=== PATIENT | female | born 1980 ===

== ENCOUNTER 2019-07-21 00:07 | Inpatient (IN) ==
[2019-07-21] MEDS ORDERED: GLUCAGON 1 MG VIAL IM PRN ×3 (02:28→09:47)
[2019-07-21] MEDS ORDERED: DEXTROSE 10% 250 ML BAG IV PRN (02:28)
[2019-07-21] MEDS ORDERED: ACETAMINOPHEN 325 MG TABLET PO PRN (02:44)
[2019-07-21] MEDS ORDERED: DEXTROSE 50% 25 GM/50 ML SYRINGE IV PRN (02:44)
[2019-07-21] MEDS: HYDROXYCHLOROQUINE 200 MG TABLET PO SCH ×2 (08:08→20:34)
[2019-07-21] MEDS: ZINC SULFATE 220 MG CAPSULE PO SCH (08:08)
[2019-07-21] MEDS: ENOXAPARIN 40 MG/0.4 ML SYRINGE SUBCUT SCH (08:08)
[2019-07-21] MEDS: INSULIN REGULAR 100 UNIT/ML SUBCUT SCH ×4 (08:31→20:17)
[2019-07-21] MEDS ORDERED: PANTOPRAZOLE 40 MG TABLET PO SCH (09:00)
[2019-07-21] MEDS ORDERED: DEXTROSE 50% 25 GM/50 ML VIAL IV PRN (09:47)
[2019-07-21 15:38] LABS: Basophils % 0.2 % (0.0-0.8); Hematocrit 41.2 VOL% (35.7-47.0); Hemoglobin 13.5 GM/DL (12.0-16.0); Immature Granulocytes % 0.6 %; Immature Granulocytes Absolute 0.03 #; Lymphocytes # 1.1 10*3/uL (1.4-4.0); Lymphocytes % 22.5 % (21.3-54.2); Mean Corpuscular HGB Conc 32.8 GM/DL (32-36); Mean Platelet Volume 10.7 FL (9.6-12.0); Monocytes % 4.8 % (1.7-12.7); Neutrophils % 71.9 % (38.7-73.9); Platelet Count 247 T/CUMM (130-400); Red Blood Count 4.79 MC/CUMM (3.8-5.5); Red Cell Distribution Width 14.1 % (9.3-17.3)
[2019-07-21 15:59] LABS: Bilirubin,Total 0.8 MG/DL (0.2-1.0); Calcium 8.1 MG/DL (8.5-10.1); Osmolality,Calculated 271.5 MOS/KG (273-304); Total Protein 7.3 G/DL (6.4-8.3)
[2019-07-21 16:00] LABS: Ferritin 256.7 ng/ml (8-252)
[2019-07-21 16:25] LABS: Atypical Lymphocytes Few; Band Neutrophils 1 % (0-10); Lymphocytes 16 % (20-55); Platelet Estimate Adequate; Reactive Lymphocytes Few; Segmented Neutrophils 78 % (50-85); Total Cells Counted 100
[2019-07-22 06:36] LABS: Basophils % 0.2 % (0.0-0.8); Eosinophils % 0.6 % (0.00-10.9); Hematocrit 39.4 VOL% (35.7-47.0); Hemoglobin 12.9 GM/DL (12.0-16.0); Immature Granulocytes % 0.4 %; Immature Granulocytes Absolute 0.02 #; Lymphocytes # 1.5 10*3/uL (1.4-4.0); Lymphocytes % 29.1 % (21.3-54.2); Mean Corpuscular HGB Conc 32.7 GM/DL (32-36); Mean Corpuscular Volume 86.4 FL (87-102); Neutrophils % 63.7 % (38.7-73.9); Platelet Count 246 T/CUMM (130-400); Red Blood Count 4.56 MC/CUMM (3.8-5.5); Red Cell Distribution Width 13.9 % (9.3-17.3); White Blood Count 5.2 T/CUMM (4-12)
[2019-07-22 07:04] LABS: Calcium 8.3 MG/DL (8.5-10.1); Ferritin 209.4 ng/ml (8-252); Osmolality,Calculated 269.4 MOS/KG (273-304)
[2019-07-22 07:55] LABS: Hypochromasia 1+; Lymphocytes 29 % (20-55); Platelet Estimate Adequate; Segmented Neutrophils 65 % (50-85); Total Cells Counted 100
[2019-07-22] MEDS: ALBUTEROL INHALER 18 GM INH SCH ×3 (08:26→20:55)
[2019-07-22] MEDS: ENOXAPARIN 40 MG/0.4 ML SYRINGE SUBCUT SCH (08:26)
[2019-07-22] MEDS: HYDROXYCHLOROQUINE 200 MG TABLET PO SCH ×2 (08:26→20:55)
[2019-07-22] MEDS: INSULIN REGULAR 100 UNIT/ML SUBCUT SCH ×4 (08:40→20:55)
[2019-07-22] MEDS: INSULIN GLARGINE 100 UNIT/ML SUBCUT SCH (15:03)
[2019-07-22] MEDS: hydroCHLOROthiazide 25 MG TABLET PO SCH (15:03)
[2019-07-23] MEDS: ALBUTEROL INHALER 18 GM INH SCH ×4 (01:56→20:23)
[2019-07-23 07:07] LABS: Basophils % 0.2 % (0.0-0.8); Eosinophils # 0.1 10*3/uL (0.0-0.87); Hematocrit 35.5 VOL% (35.7-47.0); Hemoglobin 12.1 GM/DL (12.0-16.0); Immature Granulocytes % 0.5 %; Immature Granulocytes Absolute 0.03 #; Lymphocytes # 1.4 10*3/uL (1.4-4.0); Lymphocytes % 23.1 % (21.3-54.2); Mean Corpuscular HGB Conc 34.1 GM/DL (32-36); Mean Platelet Volume 9.9 FL (9.6-12.0); Monocytes % 9.2 % (1.7-12.7); Platelet Count 267 T/CUMM (130-400); Red Blood Count 4.13 MC/CUMM (3.8-5.5); Red Cell Distribution Width 13.8 % (9.3-17.3)
[2019-07-23 07:36] LABS: Albumin 1.9 G/DL (3.4-5.0); Bilirubin,Total 0.7 MG/DL (0.2-1.0); Calcium 8.1 MG/DL (8.5-10.1); Ferritin 173.7 ng/ml (8-252); Osmolality,Calculated 273.1 MOS/KG (273-304); Total Protein 7.2 G/DL (6.4-8.3)
[2019-07-23] MEDS: ENOXAPARIN 40 MG/0.4 ML SYRINGE SUBCUT SCH (09:35)
[2019-07-23] MEDS: INSULIN GLARGINE 100 UNIT/ML SUBCUT SCH (09:35)
[2019-07-23] MEDS: INSULIN REGULAR 100 UNIT/ML SUBCUT SCH ×4 (09:35→21:12)
[2019-07-23] MEDS: hydroCHLOROthiazide 25 MG TABLET PO SCH (09:35)
[2019-07-23] MEDS: HYDROXYCHLOROQUINE 200 MG TABLET PO SCH ×2 (09:36→21:12)
[2019-07-23] MEDS: ZINC SULFATE 220 MG CAPSULE PO SCH (09:36)
[2019-07-23 13:00] LABS: Eosinophils 1 % (0-10); Hypochromasia 2+; Lymphocytes 12 % (20-55); Microcytosis 1+; Platelet Estimate Adequate; Segmented Neutrophils 77 % (50-85); Total Cells Counted 100
[2019-07-24] MEDS: ALBUTEROL INHALER 18 GM INH SCH ×4 (00:06→19:52)
[2019-07-24 06:29] LABS: Basophils % 0.2 % (0.0-0.8); Eosinophils # 0.2 10*3/uL (0.0-0.87); Eosinophils % 3.3 % (0.00-10.9); Hematocrit 34.4 VOL% (35.7-47.0); Hemoglobin 11.7 GM/DL (12.0-16.0); Immature Granulocytes % 0.2 %; Immature Granulocytes Absolute 0.01 #; Lymphocytes # 1.6 10*3/uL (1.4-4.0); Lymphocytes % 35.6 % (21.3-54.2); Mean Corpuscular Volume 85.1 FL (87-102); Mean Platelet Volume 9.5 FL (9.6-12.0); Monocytes % 13.6 % (1.7-12.7); Neutrophils % 47.1 % (38.7-73.9); Platelet Count 280 T/CUMM (130-400); Red Blood Count 4.04 MC/CUMM (3.8-5.5); Red Cell Distribution Width 13.5 % (9.3-17.3); White Blood Count 4.5 T/CUMM (4-12)
[2019-07-24] MEDS ORDERED: POTASSIUM CHLORIDE 20 MEQ TABLET PO ONE (08:01)
[2019-07-24] MEDS: ENOXAPARIN 40 MG/0.4 ML SYRINGE SUBCUT SCH (09:27)
[2019-07-24] MEDS: INSULIN GLARGINE 100 UNIT/ML SUBCUT SCH (09:27)
[2019-07-24] MEDS: HYDROXYCHLOROQUINE 200 MG TABLET PO SCH ×2 (09:27→21:30)
[2019-07-24] MEDS: hydroCHLOROthiazide 25 MG TABLET PO SCH (09:27)
[2019-07-24] MEDS: INSULIN REGULAR 100 UNIT/ML SUBCUT SCH ×4 (09:27→21:30)
[2019-07-24] MEDS: POTASSIUM CHLORIDE 20 MEQ TABLET PO SCH (21:30)
[2019-07-25] MEDS: ALBUTEROL INHALER 18 GM INH SCH ×4 (00:20→21:37)
[2019-07-25 06:13] LABS: Basophils % 0.5 % (0.0-0.8); Eosinophils # 0.3 10*3/uL (0.0-0.87); Eosinophils % 7.2 % (0.00-10.9); Hematocrit 32.3 VOL% (35.7-47.0); Hemoglobin 11.3 GM/DL (12.0-16.0); Immature Granulocytes % 0.7 %; Immature Granulocytes Absolute 0.03 #; Lymphocytes # 1.4 10*3/uL (1.4-4.0); Lymphocytes % 32.5 % (21.3-54.2); Mean Platelet Volume 9.7 FL (9.6-12.0); Monocytes % 13.4 % (1.7-12.7); Neutrophils % 45.7 % (38.7-73.9); Platelet Count 307 T/CUMM (130-400); Red Blood Count 3.59 MC/CUMM (3.8-5.5); Red Cell Distribution Width 13.4 % (9.3-17.3); White Blood Count 4.2 T/CUMM (4-12)
[2019-07-25 06:34] LABS: Calcium 8.6 MG/DL (8.5-10.1); Osmolality,Calculated 269.1 MOS/KG (273-304)
[2019-07-25] MEDS: INSULIN REGULAR 100 UNIT/ML SUBCUT SCH ×4 (09:23→21:38)
[2019-07-25] MEDS: ZINC SULFATE 220 MG CAPSULE PO SCH (09:24)
[2019-07-25] MEDS: POTASSIUM CHLORIDE 20 MEQ TABLET PO SCH (09:24)
[2019-07-25] MEDS: INSULIN GLARGINE 100 UNIT/ML SUBCUT SCH (09:24)
[2019-07-25] MEDS: HYDROXYCHLOROQUINE 200 MG TABLET PO SCH ×2 (09:24→21:38)
[2019-07-25] MEDS: hydroCHLOROthiazide 25 MG TABLET PO SCH (09:24)
[2019-07-25] MEDS: ENOXAPARIN 80 MG/0.8 ML SYRINGE SUBCUT SCH ×2 (09:25→21:37)
[2019-07-26] MEDS: ALBUTEROL INHALER 18 GM INH SCH ×4 (01:32→20:06)
[2019-07-26 05:20] LABS: Basophils % 0.4 % (0.0-0.8); Eosinophils # 0.3 10*3/uL (0.0-0.87); Eosinophils % 5.8 % (0.00-10.9); Hematocrit 34.9 VOL% (35.7-47.0); Hemoglobin 11.4 GM/DL (12.0-16.0); Immature Granulocytes % 0.6 %; Immature Granulocytes Absolute 0.03 #; Lymphocytes # 1.4 10*3/uL (1.4-4.0); Lymphocytes % 28.6 % (21.3-54.2); Mean Corpuscular HGB Conc 32.7 GM/DL (32-36); Mean Platelet Volume 9.6 FL (9.6-12.0); Monocytes % 11.3 % (1.7-12.7); Neutrophils % 53.3 % (38.7-73.9); Platelet Count 358 T/CUMM (130-400); Red Blood Count 4.01 MC/CUMM (3.8-5.5); Red Cell Distribution Width 13.3 % (9.3-17.3)
[2019-07-26 05:49] LABS: Calcium 8.2 MG/DL (8.5-10.1)
[2019-07-26] MEDS: INSULIN REGULAR 100 UNIT/ML SUBCUT SCH ×4 (10:24→20:40)
[2019-07-26] MEDS: INSULIN GLARGINE 100 UNIT/ML SUBCUT SCH (10:25)
[2019-07-26] MEDS: ENOXAPARIN 80 MG/0.8 ML SYRINGE SUBCUT SCH ×2 (10:25→20:06)
[2019-07-26] MEDS: hydroCHLOROthiazide 25 MG TABLET PO SCH (10:25)
[2019-07-27] MEDS: ALBUTEROL INHALER 18 GM INH SCH ×4 (01:16→18:08)
[2019-07-27 04:22] LABS: ABG Base Excess 6.6 MMOL/L (-2.5-2.5); ABG HCO3 30.3 MMOL/L (20-26); ABG Oxygen Saturation 94.8 % (95-100); ABG PCO2 49.1 MM HG (35-48); ABG PH 7.424 (7.35-7.45); ABG PO2 75.4 MM HG (80-95); ABG TCO2 28.7 MMOL/L (23-27); Allen Test Positive
[2019-07-27 06:16] LABS: Basophils % 0.4 % (0.0-0.8); Eosinophils # 0.2 10*3/uL (0.0-0.87); Eosinophils % 5.2 % (0.00-10.9); Hematocrit 34.6 VOL% (35.7-47.0); Hemoglobin 11.2 GM/DL (12.0-16.0); Immature Granulocytes % 0.6 %; Immature Granulocytes Absolute 0.03 #; Lymphocytes # 1.6 10*3/uL (1.4-4.0); Lymphocytes % 35.2 % (21.3-54.2); Mean Corpuscular HGB Conc 32.4 GM/DL (32-36); Mean Corpuscular Volume 87.6 FL (87-102); Mean Platelet Volume 9.9 FL (9.6-12.0); Monocytes % 11.9 % (1.7-12.7); Neutrophils % 46.7 % (38.7-73.9); Platelet Count 401 T/CUMM (130-400); Red Blood Count 3.95 MC/CUMM (3.8-5.5); Red Cell Distribution Width 13.2 % (9.3-17.3); White Blood Count 4.6 T/CUMM (4-12)
[2019-07-27 06:39] LABS: Calcium 8.6 MG/DL (8.5-10.1); Osmolality,Calculated 276.7 MOS/KG (273-304)
[2019-07-27] MEDS: INSULIN REGULAR 100 UNIT/ML SUBCUT SCH ×4 (08:48→21:08)
[2019-07-27] MEDS: INSULIN GLARGINE 100 UNIT/ML SUBCUT SCH (09:39)
[2019-07-27] MEDS: ENOXAPARIN 80 MG/0.8 ML SYRINGE SUBCUT SCH ×2 (09:39→21:08)
[2019-07-27] MEDS: hydroCHLOROthiazide 25 MG TABLET PO SCH (09:39)
[2019-07-28] MEDS: ALBUTEROL INHALER 18 GM INH SCH ×3 (00:16→12:02)
[2019-07-28 04:36] LABS: Basophils % 0.6 % (0.0-0.8); Eosinophils # 0.2 10*3/uL (0.0-0.87); Eosinophils % 4.6 % (0.00-10.9); Hematocrit 36.1 VOL% (35.7-47.0); Hemoglobin 11.9 GM/DL (12.0-16.0); Immature Granulocytes % 0.8 %; Immature Granulocytes Absolute 0.04 #; Lymphocytes # 1.8 10*3/uL (1.4-4.0); Lymphocytes % 37.2 % (21.3-54.2); Mean Corpuscular Volume 85.3 FL (87-102); Mean Platelet Volume 9.5 FL (9.6-12.0); Monocytes % 10.9 % (1.7-12.7); Neutrophils % 45.9 % (38.7-73.9); Platelet Count 422 T/CUMM (130-400); Red Blood Count 4.23 MC/CUMM (3.8-5.5); Red Cell Distribution Width 13.3 % (9.3-17.3); White Blood Count 4.8 T/CUMM (4-12)
[2019-07-28 05:03] LABS: ABG Base Excess 7.5 MMOL/L (-2.5-2.5); ABG HCO3 32.6 MMOL/L (20-26); ABG Oxygen Saturation 92.8 % (95-100); ABG PCO2 48.1 MM HG (35-48); ABG PH 7.449 (7.35-7.45); ABG PO2 65.1 MM HG (80-95); ABG TCO2 34.1 MMOL/L (23-27); Allen Test Positive
[2019-07-28 05:08] LABS: Hypochromasia 1+; Microcytosis Slight; Platelet Estimate Adequate
[2019-07-28 05:51] LABS: Calcium 8.5 MG/DL (8.5-10.1); Osmolality,Calculated 281.3 MOS/KG (273-304)
[2019-07-28] MEDS ORDERED: MAGNESIUM SULF RIDER 4 GM in PREMIX 1 EACH IV PRN (07:56)
[2019-07-28] MEDS ORDERED: MAGNESIUM SULF RIDER 2 GM in PREMIX 1 EACH IV PRN (07:56)
[2019-07-28] MEDS: INSULIN REGULAR 100 UNIT/ML SUBCUT SCH ×2 (08:30→12:02)
[2019-07-28] MEDS: INSULIN GLARGINE 100 UNIT/ML SUBCUT SCH (09:26)
[2019-07-28] MEDS: ENOXAPARIN 80 MG/0.8 ML SYRINGE SUBCUT SCH (09:26)
[2019-07-28] MEDS: hydroCHLOROthiazide 25 MG TABLET PO SCH (09:26)
[2019-07-28] MEDS ORDERED: MAGNESIUM OXIDE 400 MG TABLET PO ONE (11:00)
[2019-07-28 12:05] VITALS: BP 133/53
== END 2019-07-28 13:15 | disposition home or self-care (01) | DRG 177 ==
LOC: N.2W 01:30 → SUATTDRO 01:30
PROVIDERS: ADMIT Internal Medicine; ATTEND Hospitalist